=== PATIENT | male | born 1955 | race Caucasian/White ===

== ENCOUNTER 2023-04-26 14:07 | Emergency (ER) | payer OTHER, SELFPAY ==
[2023-04-26 14:13] VITALS: BP 175/90; PULSE 93; RESP 18; TEMP 36.2; O2SAT 99
[2023-04-26 14:55] LABS: BE (Venous) -3 mmol/L (-2-3); HCO3 (Venous) 22 mmol/L (23-28); O2 Sat (Venous) 97 %; TCO2 (Venous) 19 mmol/L (24-29); pCO2 (Venous) 32 mmHg (41-51); pH (Venous) 7.44 (7.31-7.41); pO2 (Venous) 79 mmHg
--- NOTE | 2023-04-26 14:56 | ED.GENADUL_ITS ---
Discharge Plan Disposition Patient Disposition: Home Condition: Good Discharge Details Clinical Impression: Spasm Primary Care Provider: [facility] ED Provider: Vishal Treviño Home Meds and New Rx's Prescriptions: New diazepam [Valium] 2 mg tablet 2 mg PO BID PRN (Reason: muscle spasm) Qty: 5 0RF No Action metformin 500 mg Tablet lisinopril 10 mg Tablet glipizide 5 mg Tablet Discharge Instructions Instructions: Muscle Spasm (ED) HPI General Date/Time Provider Initiated Documentation: 04/26/23 14:31 . HPI Narrative: 68 year old male with hx HTN, DM, presents to the ED with c/o b/l hand cramping to point that he can't open his hands. He says that it started about an hour ago, he was working outside changing transmission on a car when he felt his hands cramping up. He says that he has had this a few times in the past, usually after doing a lot of work with his hands, could drink some water and took tums, which would seem to help. No fever/chills. NO cp/sob, no recent diarrhea. Related Data Home Medications Medication Instructions Recorded Confirmed diazepam 2 mg tablet (Valium) 2 mg PO BID PRN muscle spasm #5 04/26/23 tabs glipizide 5 mg tablet mg 04/26/23 lisinopril 10 mg tablet mg 04/26/23 metformin 500 mg tablet mg 04/26/23 Previous Rx's Medication Instructions Recorded diazepam 2 mg tablet (Valium) 2 mg PO BID PRN muscle spasm #5 04/26/23 tabs Allergies Allergy/AdvReac Type Severity Reaction Status Date / Time No Known Allergies Allergy Unverified 04/26/23 14:32 General Stated Complaint: GenMedical ANDREY: 3 Review of Systems Narrative: CONST: no fever or chills HEENT: no sore throat SKIN: no rashes PULM: no sob, no cough CARD: no cp, no palpitations ABD: no abd pain EXTR: no swelling, +cramping NEURO: No focal weakness PFSH All Active Problems (Updated 04/26/23 @ 16:04 by Vishal Treviño MD) Spasm (Acute) Medical History (Updated 04/26/23 @ 16:04 by Vishal Treviño MD) Diabetes mellitus Social History Smoking/Tobacco Use Status: Never Smoking risk assessment performed?: Yes Alcohol Intake: never Drug use: Never Substance use type: does not use Do you feel safe at home: Yes Do you feel safe in your relationship?: Yes Exam Narrative Exam Narrative: Const: mild distress HEENT: normocephalic, atraumatic; MMM Lungs: CTA, no wheezing or rales Heart: RRR Abd: soft, NT/ND Ext: well perfused, holding hands together between his knees; b/l forearms with soft compartments. strong b/l radial pulses. Neuro: non-focal Skin: no rashes Course 68 yo male with c/o b/l carpal pedal spasm. He has had this in the past, but never this severe, but usually notes it is related to over-use. Will give IVF, check labs. Possible low Ca, ?carpal tunnel. Reevaluation(s) Initial Evaluation: Pt feeling better after IVF and meds, able to move all his fingers without difficulty. His labs were without acute issues, electrolytes normal. This always seems to occur with activity, would be odd to be carpal tunnel, no numbness/tingling, but reasonsable to have ortho eval and give their input. Vital Signs Vital signs: Vital Signs Temperature 36.2 C L 04/26/23 14:13 Pulse 93 H 04/26/23 14:13 Respiratory Rate 18 04/26/23 14:13 Blood Pressure 175/90 H 04/26/23 14:13 Pulse Oximetry 99 04/26/23 14:13 Temperature 36.2 C L 04/26/23 14:13 Temperature Source Oral 04/26/23 14:13 Pulse 93 H 04/26/23 14:13 Respiratory Rate 18 04/26/23 14:13 Respiratory Effort Normal, Non-Labored 04/26/23 14:19 Blood Pressure 175/90 H 04/26/23 14:13 Blood Pressure Position Sitting 04/26/23 14:13 Pulse Oximetry 99 04/26/23 14:13 Oxygen Delivery Method Room Air 04/26/23 14:13 Oxygen Flow Rate 0 04/26/23 14:13 Pain Level 10 04/26/23 14:13
[2023-04-26] MEDS: diazePAM 10 MG/2 ML SYR 2.5 MG IVP (15:05)
[2023-04-26 15:07] LABS: Abs Immature Grans 0.01 10^3/uL (0.0-0.06); Absolute Basophil Count 0.05 10^3/uL (0.0-0.2); Absolute Eosinophil Count 0.15 10^3/uL (0.0-0.7); Absolute Lymphocyte Count 1.49 10^3/uL (1.2-3.4); Absolute Neutrophil Count 2.77 10^3/uL (1.2-6.7); Eosinophils % 3.1; HCT 39.7 % (40.0-50.0); Immature Grans % 0.2; Lymphocytes % 30.6; MCH 30.4 pg (27.0-33.0); MCHC 35.3 % (32.0-36.0); MCV 86 fL (80-95); MPV 10.4 fL (8.0-11.0); Monocytes % 8.2; Neutrophils % 56.9; Platelet Count 255 10^3/uL (130-400); RBC 4.61 10^6/uL (4.36-5.78); RDW 12.2 % (11.8-14.1); RDW-SD 38.7 fL; WBC 4.87 10^3/uL (4.4-10.8)
[2023-04-26] MEDS: Normal Saline 1,000 ML 1000 ML IV (15:10)
[2023-04-26 15:17] LABS: Albumin 3.8 g/dL (3.4-5.0); Alkaline Phosphatase 57 U/L (46-116); BUN 14 mg/dL (7-18); Bilirubin, Total 0.6 mg/dL (0.2-1.0); Calcium 8.9 mg/dL (8.5-10.1); Chloride 100 mmol/L (98-107); Estimated GFR 83.01 (mL/min/1.73m2); Glucose 271 mg/dL (74-106); PHOSPHORUS 3.1 mg/dL (2.6-4.7); Potassium 4.2 mmol/L (3.5-5.1); Sodium 135 mmol/L (136-145); Total Protein 6.9 g/dL (6.4-8.2)
[2023-04-26 15:18] LABS: ALT 32 U/L (16-63); AST 22 U/L (15-37); Anion Gap 12.4 mmol/L (3-11); CO2 22.6 mmol/L (21.0-32.0); Magnesium 1.8 mg/dL (1.8-2.4)
== END 2023-04-26 16:34 | disposition home or self-care (01) ==
PROVIDERS: Emergency Provider Emergency Medicine
DX: R25.2 Cramp and spasm (principal)
CPT/HCPCS: 80053; 82805; 85027; 96361; 96374; 99284; 83735; 84100; 85025; J3360; J3490

== ENCOUNTER 2025-06-19 01:32 | Outpatient (CLI) | payer OTHER, SELFPAY ==
--- NOTE | 2025-06-19 09:34 | DI.RAD_ITS ---
Exam(s) XR HAND RT COMPLETE XR HAND LT COMPLETE EXAM: XR HAND RT COMPLETE CLINICAL HISTORY: BILAT HAND PAIN,S/P CARPAL TUNNEL SURGERY,H/O TRAUMA,M79.643,[id number]. TECHNIQUE: 2D digital imaging was performed. Three views of both hands. COMPARISON: CR XR HAND LT COMPLETE from 06/19/2025 FINDINGS: BONES: No acute fracture is present. No bony destructive lesion is seen. JOINTS: No dislocation present. Minimal degenerative changes. SOFT TISSUE: Mild vascular calcifications are visible. IMPRESSION: No acute abnormality in either hand. DATA REPOSITORY: RADIATION DOSE DELIVERED:
--- NOTE | 2025-06-19 09:34 | DI.RAD_ITS ---
Exam(s) XR HAND RT COMPLETE XR HAND LT COMPLETE EXAM: XR HAND RT COMPLETE CLINICAL HISTORY: BILAT HAND PAIN,S/P CARPAL TUNNEL SURGERY,H/O TRAUMA,M79.643,[id number]. TECHNIQUE: 2D digital imaging was performed. Three views of both hands. COMPARISON: CR XR HAND LT COMPLETE from 06/19/2025 FINDINGS: BONES: No acute fracture is present. No bony destructive lesion is seen. JOINTS: No dislocation present. Minimal degenerative changes. SOFT TISSUE: Mild vascular calcifications are visible. IMPRESSION: No acute abnormality in either hand. DATA REPOSITORY: RADIATION DOSE DELIVERED:
== END 2025-06-19 01:52 ==
PROVIDERS: PCP Internal Medicine; Visit Provider Internal Medicine
DX: M79.642 Pain in left hand (principal); M79.641 Pain in right hand
CPT/HCPCS: 73130